=== PATIENT | male | born 1955 | race Caucasian/White ===

== ENCOUNTER → 2020-06-27 | Outpatient (CLI) | payer OTHER ==
[~2020-06-27] MED LIST: ASPI-630 PO; CRESTOR5 MG PO; ISOS30TA68 PO; LOSA-73 PO; METO25TA4 PO
== END ==
LOC: LAB 14:53
PROVIDERS: ATTEND Internal Medicine Cardiovascular Disease
DX: Z01.812 Encounter for preprocedural laboratory examination (principal); I25.10 Atherosclerotic heart disease of native coronary artery without angina pectoris; Z20.822 Contact with and (suspected) exposure to COVID-19
CPT/HCPCS: U0003

== ENCOUNTER 2020-07-01 07:34 | Outpatient (CLI) | payer OTHER ==
[~2020-07-01] VITALS: Ht 160 cm; Wt 72.6 kg
[2020-07-01] VITALS (11 sets, daily range): BP systolic 135–176; BP diastolic 86–109
[2020-07-01] MEDS ORDERED: LIDOCAINE 1% PF 2 ML VIAL. ONE (07:42)
[2020-07-01] MEDS ORDERED: HEPARIN for ARTERIAL LINE 1,500 ML ONE (07:42)
[2020-07-01] MEDS ORDERED: IODIXANOL 320 MG/ML 100 ML VIAL. ONE ×2 (07:42→09:26)
[2020-07-01] MEDS ORDERED: ISOS30TA68 PO (07:48)
[2020-07-01] MEDS ORDERED: LOSA-73 PO (07:48)
[2020-07-01] MEDS ORDERED: ASPI-630 PO (07:48)
[2020-07-01] MEDS ORDERED: CRESTOR5 MG PO (07:48)
[2020-07-01 08:05] LABS: HEMATOCRIT 41.1 % (39.0-53.0); HEMOGLOBIN 13.9 g/dL (13.0-17.5); RED BLOOD COUNT 4.56 x10^6/uL (4.30-5.70); RED CELL DISTRIBUTION WIDTH 13.6 % (11.5-14.5); WHITE BLOOD COUNT 5.5 x10^3/uL (4.0-11.0)
[2020-07-01 08:15] LABS: PROTHROMBIN TIME PATIENT 13.5 SEC (11.7-14.0)
[2020-07-01 08:31] LABS: CALCIUM 8.9 mg/dL (8.5-10.1); CREATININE 1.1 mg/dL (0.7-1.3); POTASSIUM 4.1 mmol/L (3.5-5.1)
[2020-07-01] MEDS ORDERED: LIDOCAINE 1% Multi-Dose 20 ML VIAL. ONE (08:40)
[2020-07-01] MEDS ORDERED: MIDAZOLAM HCL/PF 2 MG/2 ML VIAL. ONE ×2 (08:45→09:05)
[2020-07-01] MEDS ORDERED: fentaNYL PF VIAL 100 MCG/2 ML VIAL ONE ×2 (08:45→09:08)
[2020-07-01] MEDS ORDERED: MIDAZOLAM HCL/PF 2 MG/2 ML VIAL. IV ONE (09:45)
[2020-07-01] MEDS ORDERED: LIDOCAINE 1% Multi-Dose 20 ML VIAL. INJ ONE (09:45)
[2020-07-01] MEDS ORDERED: CONTRAST GIVEN. MC PRN (09:45)
[2020-07-01] MEDS ORDERED: IODIXANOL 320 MG/ML 100 ML VIAL. IART ONE (09:45)
[2020-07-01] MEDS ORDERED: LIDOCAINE 1% PF 2 ML VIAL. INJ ONE (09:45)
[2020-07-01] MEDS ORDERED: fentaNYL PF VIAL 100 MCG/2 ML VIAL IV ONE (09:45)
--- NOTE | 2020-07-01 10:48 | CARD ---
MR#: [id number] Date of Study: 07/01/2020 Ordering Physician: SCOTTIE CORNEJO, Referring Physician: SCOTTIE CORNEJO, Tech: RT Regan(R) APPROVED REPORT Technologist: RT Regan(R) Nurse: Yane Valdez RN Procedure(s) performed: fl time: 14.9 mins dose: 107 gycm2 contrast: 217 ml moderate sedation: 56 MINS LHC, Coronary angiography, Bypass angiography CS Clinical Frailty Scale [facility] Clinical Frailty Scale: Managing Well Heart Failure Heart Failure: No CASE TECHNIQUE IV conscious sedation was used throughout procedure with appropriate monitoring and was performed in the presence of a registered nurse who was an independent trained observer other than the physician p erforming the procedure. During this case, Fluoroscopy and low osmolar contrast were used for imaging . Specimen(s) Removed: N/A Estimated Blood loss: 15 cc's. PROCEDURE NARRATIVE Clinical information: 65-year-old man with a prior history of bypass surgery 20 years ago who presented to the office with accelerating anginal symptoms. He had 5 out of 10 chest pain with moderate daily activities which re solved with rest. He was brought to the [facility] in an expedited fashion for further evaluation and treatment. Informed consent: Appropriate informed consent was obtained from the patient after a thorough discussion of the risks a nd benefits of the procedure. Procedure details: The right groin was prepped and draped in usual sterile fashion. Under fluoroscopic guidance a 6 Campbell tnh sheath was placed in the right common femoral artery via the modified Seldinger technique. Limit ed angiography demonstrated adequate sheath entry and appropriate anatomy for closure device placemen t. Next, diagnostic angiography was performed with a 6 Qatari JL4, JR4, LCB and pigtail catheters. Left ventricular end-diastolic pressure was obtained with a pigtail catheter and a pullback was perfo rmed. At case completion the right groin sheath was removed and hemostasis was achieved with a Angio -Seal device. Findings: Aorta 140/70 LVEDP 20 mmHg No gradient on LV to aortic pullback CORONARY ANGIOGRAPHY: LM: Moderate caliber heavily calcified vessel with a distal 90% stenosis. LAD: Moderate caliber vessel with an ostial 90% stenosis and a mid 100% occlusion. Large robust septa l collaterals are noted. D1: Small caliber vessel with a proximal 70% stenosis. LCx: Moderate caliber non-dominant vessel with an ostial 90% stenosis. OM1: Small caliber vessel with a long segment diffuse disease of up o 50%. The distal vessel is seen to fill via competitive flow which appears to be from epicardial left to left collaterals. RCA: Moderate caliber vessel with a proximal 100% occlusion. The distal vessel is seen to fill via le ft to right collaterals from the apical LAD. BYPASS ANGIOGRAPHY: PORTILLO to LAD: Widely patent without anastomotic stenosis. SVG to presumed RCA, OM1 are occluded. Aortogram: Mildly dilated aorta with a short aortic arch. No clear evidence of bypass graft was note d. Left ventriculogram: Deferred due to pending echocardiogram. Conclusion 1. Mildly elevated left sided filling pressures. LVEDP 20 mm Hg 2. Severe three vessel coronary disease with LM involvement. 3. 1/4 bypass grafts patent (PORTILLO to LAD) Recommendations 1. Continue aggressive medical therapy to include asa, statin, b-yadira and nitrates. 2. Referral to tertiary medical center for consideration of high risk LM bifurcation PCI versus RCA C TO PCI in the setting of limited septal collaterals based on response to medical therapy. Signed by : Scottie Cornejo, Electronically Approved : 07/01/2020 10:48:06
[2020-07-01] MEDS ORDERED: METO25TA4 PO (11:28)
--- NOTE | 2020-07-01 14:22 | CARD ---
MR#: [id number] Date of Study: 07/01/2020 Ordering Physician: SCOTTIE CORNEJO, Referring Physician: SCOTTIE CORNEJO, Tech: Maira Morales [facility] APPROVED REPORT EXAM: Two-dimensional and M-mode echocardiogram with Doppler and color Doppler. Other Information Quality : AverageHR: 65bpm Rhythm : NSR INDICATION CAD RISK FACTORS Hypertension Hyperlipidemia 2D DIMENSIONS RVDd3.4 (2.9-3.5cm)Left Atrium(2D)5.4 (1.6-4.0cm) IVSd1.1 (0.7-1.1cm)Aortic Root(2D)3.3 (2.0-3.7cm) LVDd3.7 (3.9-5.9cm)LVOT Diameter2.2 (1.8-2.4cm) PWd1.0 (0.7-1.1cm)LVDs3.2 (2.5-4.0cm) FS (%) 15.1 %SV19.1 ml LVEF(%)32.7 (>50%) Aortic Valve AoV Peak Abraham.147.1cm/sAoV VTI29.5cm AO Peak GR.8.7mmHgLVOT Peak Abraham.119.0cm/s AO Mean GR.4mmHgAVA (VMAX)3.17cm2 Mitral Valve MV E Utlekmew52.9cm/sMV DECEL [id number] MV A Vyphncan37.2cm/sE/A Ratio0.6 Pulmonary Valve PV Peak Fgcnpltt690.4cm/s Tricuspid Valve TR P. Tpqusdev721bz/sTR Peak Gr.16mmHg Pulmonary Vein S1 Vqrryxde18.7cm/sD2 Qmqizlwr21.8cm/s PVa [id number] LEFT VENTRICLE The left ventricle is normal size. There is borderline concentric left ventricular hypertrophy. Basal inferior and posterior wall hypokinesis. Estimated ejection fraction 55%. Transmitral Doppler flow p attern is Grade I-abnormal relaxation pattern. RIGHT VENTRICLE The right ventricle is normal size. There is normal right ventricular wall thickness. The right ventr icular systolic function is normal. ATRIA The left atrium is borderline dilated. The right atrium size is normal. The interatrial septum is int act with no evidence for an atrial septal defect or patent foramen ovale as noted on 2-D or Doppler i maging. AORTIC VALVE The aortic valve is normal in structure and function. Doppler and Color Flow revealed no significant aortic regurgitation. There is no significant aortic valvular stenosis. MITRAL VALVE The mitral valve is normal in structure and function. There is no evidence of mitral valve prolapse. There is no mitral valve stenosis. Doppler and Color-flow revealed mild mitral regurgitation. TRICUSPID VALVE The tricuspid valve is normal in structure and function. Doppler and Color Flow revealed trace tricus pid regurgitation. Estimated PAP 20 mmHg. There is no tricuspid valve stenosis. PULMONIC VALVE The pulmonary valve is normal in structure and function. Doppler and Color Flow revealed mild pulmoni c valvular regurgitation. GREAT VESSELS The aortic root is normal in size. The ascending aorta is normal in size. The IVC is normal in size a nd collapses >50% with inspiration. PERICARDIAL EFFUSION There is no evidence of significant pericardial effusion. Critical Notification Critical Value: No <Conclusion> Basal inferior and posterior wall hypokinesis. Estimated ejection fraction 55%. Transmitral Doppler flow pattern is Grade I-abnormal relaxation pattern. Mild mitral regurgitation. Trace tricuspid regurgitation. Estimated PAP 20 mmHg. There is no evidence of significant pericardial effusion. Signed by : Carroll Spangler, Electronically Approved : 07/01/2020 14:22:06
== END 2020-07-01 12:15 | disposition home or self-care (01) ==
LOC: CCL 07:34
PROVIDERS: ATTEND Internal Medicine Cardiovascular Disease
DX: I25.119 Atherosclerotic heart disease of native coronary artery with unspecified angina pectoris (principal); I10 Essential (primary) hypertension; E78.00 Pure hypercholesterolemia, unspecified; Z79.82 Long term (current) use of aspirin; Z79.899 Other long term (current) drug therapy; Z72.89 Other problems related to lifestyle; Z98.890 Other specified postprocedural states
CPT/HCPCS: 36415; 80048; 85027; 85610; 93306; 93459; 93567; 99152; 99153; C1760; C1769; C1892; J1644; J2250; J3010; J3490; Q9967; G0269; C1771